=== PATIENT | female | born 1950 | race African-American/Black ===

== ENCOUNTER 2021-12-06 11:13 | Emergency (ER) | payer OTHER ==
[~2021-12-06] VITALS: Ht 167.6 cm; Wt 78.4 kg
[2021-12-06] MEDS ORDERED: IOHEXOL-350 100 ML BOTTLE ONE (11:54)
[2021-12-06 12:21] LABS: BASOPHILS % 1.1 % (0.0-2.0); EOSINOPHILS % 2.7 % (0.0-5.0); HEMATOCRIT. 36.3 % (36.0-48.0); HEMOGLOBIN. 11.8 g/dL (12.0-16.0); MEAN CORPUSCULAR HEMOGLOBIN 29.8 pg (28.0-32.0); MEAN CORPUSCULAR VOLUME 91.1 fL (81.0-99.0); MEAN PLATELET VOLUME 7.6 fl (7.4-10.4); MONOCYTES % 6.7 % (2.0-8.0); NEUTROPHILS % 67.5 % (40.0-76.0); PLATELET 227 x1000/uL (130-400); RED BLOOD CELL COUNT 3.98 mill/uL (4.2-5.4); RED CELL DISTRIBUTION WIDTH 13.5 % (11.6-14.6)
[2021-12-06 12:22] LABS: CLARITY URINE CLEAR (CLEAR); COLOR URINE YELLOW (YELLOW); KETONES URINE NEGATIVE (NEGATIVE); LEUKOCYTE ESTERASE URINE NEGATIVE (NEGATIVE); NITRITE URINE NEGATIVE (NEGATIVE); OCCULT BLOOD URINE NEGATIVE (NEGATIVE); PH URINE 7.5 (4.5-8.0); PROTEIN URINE NEGATIVE (NEGATIVE); SPECIFIC GRAVITY URINE 1.009 (1.005-1.030); UROBILINOGEN URINE 0.2 E.U./dL (0.2-1.0)
[2021-12-06 12:29] LABS: CHLORIDE 102 mEq/L (98-107)
[2021-12-06 12:38] LABS: ETHANOL BLOOD < 10 mg/dL
[2021-12-06 12:45] LABS: *AMPHETAMINES SCREEN URINE NEGATIVE (NEGATIVE); *BARBITURATES SCREEN URINE NEGATIVE (NEGATIVE); *BENZODIAZEPINES SCREEN URINE NEGATIVE (NEGATIVE); *COCAINE SCREEN URINE NEGATIVE (NEGATIVE); CANNABINOID URINE SCREEN NEGATIVE (NEGATIVE); METHADONE URINE SCREEN NEGATIVE (NEGATIVE); OPIATES URINE SCREEN NEGATIVE (NEGATIVE); PHENCYCLIDINE URINE SCREEN NEGATIVE (NEGATIVE)
[2021-12-06] MEDS ORDERED: MORPHINE SULFATE 2 MG/ML CPJ (NOT FOR IM USE) IV ONE (13:00)
[2021-12-06] MEDS ORDERED: ONDANSETRON HCL 4MG/2ML INJ IV ONE (13:00)
[2021-12-06] MEDS ORDERED: ASPIRIN 81MG TABLET PO NR (13:45)
[2021-12-06] MEDS ORDERED: MORPHINE SULFATE 4 MG/ML CPJ (NOT FOR IM USE) IV STA (18:16)
[2021-12-06 20:00] VITALS: BP 118/59
== END 2021-12-06 22:05 | disposition short-term general hospital (02) ==
LOC: ER 11:13 → CANBEDREQ 17:08 → ER 22:05
DX: R53.1 Weakness (principal); R29.810 Facial weakness; S80.01XA Contusion of right knee, initial encounter; S40.011A Contusion of right shoulder, initial encounter; S50.11XA Contusion of right forearm, initial encounter; I10 Essential (primary) hypertension; W01.0XXA Fall on same level from slipping, tripping and stumbling without subsequent striking against object, initial encounter; Y93.9 Activity, unspecified; Y92.9 Unspecified place or not applicable; Z20.822 Contact with and (suspected) exposure to COVID-19
CPT/HCPCS: 36415; 70450; 70496; 70498; 71045; 73030; 73060; 73090; 73560; 80053; 80305; 80320; 81003; 84484; 85025; 87426; 93005; 96374; 96375; 96376; 99291; C9803; J2270; J2405; Q9967; G0480